=== PATIENT | male | born 1970 | race Caucasian/White ===

== ENCOUNTER 2017-03-12 22:38 | Emergency (ER) | payer OTHER, BC ==
[2017-03-12 22:43] VITALS: BP 145/90
[2017-03-12] MEDS ORDERED: Sodium Chloride 0.9% 1,000 ML IV ONE (22:53)
[2017-03-12] MEDS ORDERED: Clindamycin Phosphate 900 MG in Sodium Chloride 0.9% 100 ML IV ONE (22:53)
--- NOTE | 2017-03-12 22:59 | EDM.PDOC ---
ED HPI GENERAL MEDICAL PROBLEM - General Chief Complaint: Wound Recheck Stated Complaint: HAND SWOLLEN-WORKERS COMP 03/10/17 Time Seen by Provider: 03/12/17 22:54 Source of Information: Reports: Patient History Limitations: Reports: No Limitations - History of Present Illness INITIAL COMMENTS - FREE TEXT/NARRATIVE: got punctured by hot metal piece Wednesday and tonight left index looks worse with pain redness swelling. 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 Denies: Bowel Obstruction, Celiac Disease, Cholelithiasis, Chronic Constipation, Chronic Diarrhea, Colon Polyp, Diverticulosis, Fecal Incontinence, Gastritis, GI Bleed, Hepatitis, Irritable Bowel Syndrome, Jaundice, Pancreatitis, PUD Genitourinary History: Reports: None. Denies: Acute Renal Failure, BPH, Chronic Renal Insuffiency, Dialysis, Diabetic Nephropathy, Renal Calculus, STD, Urinary Incontinence, UTI, Recurrent Musculoskeletal History: Reports: Back Pain, Chronic, Neck Pain, Chronic, Osteoarthritis Neurological History: Reports: Headaches, Chronic, Migraines Psychiatric History: Reports: None Endocrine/Metabolic History: Reports: Diabetes, Type II Other Endocrine/Metabolic History: Testosterone deficiency Hematologic History: Reports: None Immunologic History: Reports: None Oncologic (Cancer) History: Reports: None Dermatologic History: Reports: None - Infectious Disease History Infectious Disease History: Reports: Chicken Pox - Past Surgical History Head Surgeries/Procedures: Reports: None HEENT Surgical History: Reports: Adenoidectomy, Oral Surgery, Tonsillectomy GI Surgical History: Reports: Appendectomy, Colon, EGD Male Surgical History: Reports: Circumcision, Vasectomy Oncologic Surgical History: Reports: None Dermatological Surgical History: Reports: None - Past Imaging History Past Imaging History: Reports: MRI (MRI of the right shoulder in about 2011) Social & Family History - Family History HEENT: Reports: None. Denies: Allergic Rhinitis, Glaucoma, Macular Degeneration , Retinal Detachment Cardiac: Reports: CAD, OR, Other (See Below) Other Cardiac Family History: Maternal uncle with OR in his 40s, mother with CABG x4 in her 60s with history of silent MIs Respiratory: Reports: Asthma, COPD, Other (See Below) Other Respiratory Family Hisory: 3 children of asthma, maternal grandfather with COPD with history of tobacco use, father with possible COPD secondary to tobacco use GI: Reports: Colon Polyps, Pancreatitis, Other (See Below) Other GI Family History: maternal father with colonic polyps, father with history pancreatitis secondary to alcohol abuse : Reports: None. Denies: Dialysis, Renal Calculus, Renal Disease/ Insufficiency, UTI, Recurrent OBGYN: Reports: None. Denies: Dysfunctional uterine bleeding, Endometriosis, Fibroids, Recurrent Spontaneous Musculoskeletal: Reports: None. Denies: Gout, Osteoarthritis, RA, SLE Neurological: Reports: CVA, Seizure, Other (See Below) Other Neurological Family History: paternal great grandmother with CVA at about age 92, son with seizures since age 16 secondary to football injury Psychiatric: Reports: Anxiety, Depression, Other (See Below) Other Psychiatric Family History: Father with history of alcohol abuse, anxiety , and depression with subsequent postoperative narcotic addiction Endocrine/Metabolic: Reports: Diabetes, type II, Hypothyroidism, IDDM, Other ( See Below) Other Endocrine/Metabolic Family History: IDDM in parents Hematologic: Reports: Anemia, Other (See Below) Other Hematologic Family History: Father with postoperative anemia Immunologic: Reports: None. Denies: AIDS, HIV, SLE Dermatologic: Reports: Eczema, Other (See Below) Other Dermatologic Family History: Son with eczema Oncologic: Reports: Colon, Pancreatic, Other (See Below) Other Oncologic Family History: Paternal grandmother with fatal pancreatic cancer in her 80s, possible fatal colon cancer in maternal grandfather in his 80s, paternal grandaunt with fatal unknown type of cancer in her 60s - Tobacco Use Smoking Status *Q: Current Every Day Smoker Years of Tobacco use: 12 Packs/Tins Daily: 0.2 Used Tobacco, but Quit: No Second Hand Smoke Exposure: Yes - Caffeine Use Caffeine Use: Reports: Soda (3 sodas per day). Denies: Coffee, Energy Drinks, Tea - Alcohol Use Days Per Week of Alcohol Use: 0 Number of Drinks Per Day: 6 Total Drinks Per Week: 0 - Recreational Drug Use Recreational Drug Use: No Drug Use in Last 12 Months: No - Living Situation & Occupation Living situation: Reports: , with Family Occupation: Employed ED ROS GENERAL - Review of Systems Review Of Systems: ROS reveals no pertinent complaints other than HPI. ED EXAM, GENERAL - Physical Exam Exam: See Below Exam Limited By: No Limitations General Appearance: Alert, WD/WN, No Apparent Distress Ears: Hearing Grossly Normal Throat/Mouth: Normal Voice, No Airway Compromise Head: Atraumatic Neck: Non-Tender, Full Range of Motion Respiratory/Chest: No Respiratory Distress Cardiovascular: Regular Rate, Rhythm GI/Abdominal: Soft, Non-Tender Extremities: Increased Warmth, Redness, Other (left index swollen tender erythematous, NV wnl. no gross lymphangitis.) Neurological: Alert, Oriented, Normal Cognition, Normal Gait, No Motor/Sensory Deficits Psychiatric: Normal Affect, Normal Mood Skin Exam: Warm, Dry, Normal Color Lymphatic: No Adenopathy Course - Vital Signs Last Recorded V/S: Last Vital Signs Temp 36.2 C 03/12/17 22:40 Pulse 83 03/12/17 22:40 Resp 18 03/12/17 22:40 BP 145/90 H 03/12/17 22:40 Pulse Ox 97 03/12/17 22:40 - Orders/Labs/Meds Orders: Active Orders 24 hr Category Date Time Status CULTURE BLOOD [BC] Stat Lab 03/12/17 23:05 Received Labs: Laboratory Tests 03/12/17 03/12/17 03/12/17 Range/Units 23:05 23:05 23:05 WBC 14.0 H (5.0-10.0) 10^3/uL RBC 5.02 (4.6-6.2) 10^6/uL Hgb 15.4 (14.0-18.0) g/dL Hct 46.2 (40.0-54.0) % MCV 92.0 (80-100) fL MCH 30.7 (27.0-34.0) pg MCHC 33.3 (33.0-35.0) g/dL Plt Count 231 (150-450) 10^3/uL Neut % (Auto) 71.8 (42.2-75.2) % Lymph % (Auto) 16.9 L (20.5-50.1) % [place] % (Auto) 10.3 H (2-8) % Eos % (Auto) 0.8 L (1.0-3.0) % Baso % (Auto) 0.2 (0.0-1.0) % Sodium 140 (135-145) mmol/L Potassium 4.0 (3.6-5.0) mmol/L Chloride 104 (101-111) mmol/L Carbon Dioxide 25.0 (21.0-31.0) mmol/L Anion Gap 15.0 BUN 15 (7-18) mg/dL Creatinine 1.1 (0.6-1.3) mg/dL Est Cr Clr Drug Dosing 85.72 mL/min Estimated GFR (MDRD) > 60 BUN/Creatinine Ratio 13.63 Glucose 115 H (74-105) mg/dL Lactic Acid 0.7 (0.5-2.2) mmol/L Calcium 9.1 (8.4-10.2) mg/dl Total Bilirubin 0.9 (0.2-1.0) mg/dL AST 23 (10-42) IU/L ALT 26 (10-60) IU/L Alkaline Phosphatase 36 L (42-121) IU/L Total Protein 7.5 (6.7-8.2) g/dl Albumin 4.2 (3.2-5.5) g/dl Globulin 3.3 Albumin/Globulin Ratio 1.27 Meds: Medications Discontinued Medications Generic Name Dose Route Start Last Admin Trade Name Freq PRN Reason Stop Dose Admin Clindamycin Phosphate 900 mg/ 106 mls @ 200 mls/hr 03/12/17 22:53 03/12/17 23 :09 Sodium Chloride IV 03/12/17 23:24 200 mls/hr ONETIME ONE Administration Sodium Chloride 1,000 mls @ 999 mls/hr 03/12/17 22:53 03/12/17 23:09 Normal Saline IV 03/12/17 23:53 999 mls/hr .BOLUS ONE Administration - Re-Assessments/Exams Free Text/Narrative Re-Assessment/Exam: 03/13/17 00:06 results discussed with Pt. Departure - Departure Time of Disposition: 00:07 Disposition: Home, Self-Care 01 Condition: Good Clinical Impression: Cellulitis Qualifiers: Site of cellulitis: extremity Site of cellulitis of extremity: upper extremity Laterality: left Qualified Code(s): L03.114 - Cellulitis of left upper limb - Discharge Information Instructions: Cellulitis, Adult, [id number] Forms: ED Department Discharge Additional Instructions: 1) elevate arm as much as possible next 24 hours 2) recheck if looks worse. rx given; clindamycin 150mg qid x 40 - My Orders Last 24 Hours: My Active Orders 03/12/17 23:05 CULTURE BLOOD [BC] Stat - Assessment/Plan Last 24 Hours: My Active Orders 03/12/17 23:05 CULTURE BLOOD [BC] Stat
[2017-03-12 23:34] LABS: CHLORIDE,CL 104 mmol/L (101-111); SODIUM,NA 140 mmol/L (135-145)
== END 2017-03-13 00:23 | disposition home or self-care (01) ==
LOC: DL.ED 22:38
DX: L03.012 Cellulitis of left finger (principal); E78.00 Pure hypercholesterolemia, unspecified; K21.9 Gastro-esophageal reflux disease without esophagitis; M19.90 Unspecified osteoarthritis, unspecified site; G43.909 Migraine, unspecified, not intractable, without status migrainosus; E11.9 Type 2 diabetes mellitus without complications; F17.210 Nicotine dependence, cigarettes, uncomplicated; Z90.49 Acquired absence of other specified parts of digestive tract; Z98.890 Other specified postprocedural states; Z79.84 Long term (current) use of oral hypoglycemic drugs
CPT/HCPCS: 36415; 80053; 83605; 85025; 87040; 96361; 96365; 99283; J7030; J7050; S0077